=== PATIENT | female | born 1935 | race Caucasian/White ===

== ENCOUNTER 2018-07-31 17:01 | Inpatient (IN) ==
--- NOTE | 2018-07-31 17:33 | Emergency Department Note ---
Disposition Clinical Impression: Abdominal pain, UTI (urinary tract infection), Pyelonephritis Disposition: Admitted As Inpatient Condition: Fair Abdominal Pain HPI - General Chief Complaint: ED Abdominal Pain Stated Complaint: shortness of breath, weakness Time Seen by Provider: 07/31/18 17:15 Source: patient, EMS Mode of arrival: ambulatory Limitations: no limitations Nursing Notes Reviewed: Yes Vital Signs Reviewed: Yes - History of Present Illness HPI Narrative: 82 female who presents when she had nausea vomiting diarrhea since she had endoscopy performed with a did a biopsy she has had no blood in the vomit or any blood in the stool in addition the due to this patient states that she just does not feel she is making that peaked to get better patient then stated that she quit taking her Cardizem just before the procedure because she said she thought was causing her burning and stinging when she urinates she then had the procedure for foreign now she is just progressively had a decline since that she denies though cough congestion runny nose states this has no sore throat daughter advises that they found Loera's esophagus/esophagitis and gastritis and a polyp but she denies that hearing then used the term ulcer disease all systems otherwise have been reviewed and are otherwise negative Pt Subjective Complaint: abdominal pain, other (N/V/D) Consistency: constant Location: suprapubic Pain Scale: 4 Quality: cramping Improves with: nothing Worsens with: nothing Context: recent antibiotic use, recent surgery/procedure Associated symptoms: Reports: nausea, vomiting. Denies: diarrhea, fever, chills, dysuria, hematochezia, melena Treatments prior to arrival: prescription analgesics - Related Data Home Medications Medication Instructions Recorded Confirmed RX: Albuterol Sulfate [Albuterol 2 puff IH Q6HR 10/31/15 07/31/18 Inhaler] RX: Budesonide/Formoterol 160/4.5 2 puff IH BIDR 10/31/15 07/31/18 [Symbicort 160/4.5] RX: Cholecalciferol (Vitamin D3) 1,000 unit PO DAILY 10/31/15 07/31/18 [Vitamin D3] RX: Furosemide [Lasix] 20 mg PO BID 10/31/15 07/31/18 RX: Isosorbide MONOnitrate (24 HR) 60 mg PO DAILY 10/31/15 07/31/18 [Imdur] RX: Levothyroxine [Synthroid] 137 mcg PO 0630 10/31/15 07/31/18 RX: Omeprazole [PriLOSEC] 40 mg PO DAILY 10/31/15 07/31/18 RX: Simvastatin [Zocor] 10 mg PO DAILY 10/31/15 07/31/18 RX: Warfarin [Coumadin] 5 mg PO 6XW 10/31/15 07/31/18 RX: Albuterol Neb [Proventil Neb] 2.5 mg IH BID 02/17/16 07/31/18 RX: Gabapentin [Neurontin] 300 mg PO TID 02/17/16 07/31/18 RX: Mometasone Furoate [Elocon] 1 appl TP BID 02/17/16 07/31/18 RX: Nitroglycerin [Nitrostat] 0.4 mg SL AD PRN 02/17/16 07/31/18 RX: Losartan/HCTZ [Hyzaar 50-12.5 1 each PO DAILY 10/20/16 07/31/18 Tablet] RX: Warfarin [Coumadin] 2.5 mg PO ANDERSEN 10/23/16 07/31/18 Calcium Carbonate [Calcium] 600 mg PO DAILY 07/31/18 07/31/18 Diltiazem [Cardizem] 60 mg PO Q8HR 07/31/18 07/31/18 Multivit-Min/FA/Lycopen/Lutein 1 each PO DAILY 07/31/18 07/31/18 [Adults 50+ Multivitamin Tablet] [place]itt-3/Dha/Epa/Fish Oil [Fish Oil 1 each PO DAILY 07/31/18 07/31/18 1,000 mg Softgel] Promethazine [Phenergan] 25 mg PO Q6HR 07/31/18 07/31/18 Allergies Allergy/AdvReac Type Severity Reaction Status Date / Time Milk Containing Products AdvReac Cough Verified 07/31/18 17:20 All systems ED: reviewed and negative except as stated. Review of Systems: As Per HPI Constitutional: Reports: weakness. Denies: fever, chills Eyes: Denies: eye pain, eye discharge ENT ED: Denies: ear pain, throat pain Cardiovascular: Denies: chest pain, palpitations Respiratory: Denies: cough, dyspnea Gastrointestinal: Reports: abdominal pain, nausea, vomiting Genitourinary: Reports: frequency. Denies: urgency, dysuria Musculoskeletal: Denies: back pain, neck pain Integumentary: Denies: rash, abrasion, lesions, change in hair/nails Neurological: Denies: headache, weakness, numbness Psychiatric: Denies: anxiety Endocrine: Denies: fatigue Hematological/Lymphatic: Denies: easy bleeding Allergic/Immunologic: Denies: facial swelling Abdominal Pain PMH - Past Medical History Medical history: Reports: atrial fibrillation, CHF, coronary artery disease, GERD, hyperlipidemia, hypertension, other Female Surgical History: Reports: angioplasty/stent, other BIOLOGICAL SCIENTIST history: Reports: no BIOLOGICAL SCIENTIST history Psychiatric history: Reports: depression - Social History Smoking status: 2nd Hand Smoke Exposure Alcohol use: Reports: none Drug use: Reports: none Physical Exam - General Limitations: no limitations General appearance: alert, in no apparent distress, anxious - Head Head exam: atraumatic, normocephalic, normal inspection - Eye Eye exam: Present: normal appearance, PERRL, EOMI - ENT ENT exam: normal exam, normal oropharynx, mucous membranes moist - Neck Neck exam: Present: normal inspection, full ROM, trachea midline - Chest Chest inspection: Present: normal inspection, symmetric chest wall rise - Respiratory Respiratory exam: Present: normal lung sounds bilaterally - Cardiovascular Cardiovascular exam: Present: regular rate, normal rhythm, normal heart sounds - Abdominal Exam Abdominal exam: Present: soft, tenderness, normal bowel sounds. Absent: distention, guarding, rebound, rigidity Abdominal tenderness: Present: suprapubic, mild - Expanded Upper Extremity Exam Shoulder exam: Present: normal inspection, full ROM Arm exam: Present: normal inspection, full ROM Elbow exam: Present: normal inspection, full ROM Forearm/Wrist exam: Present: normal inspection, full ROM Hand exam: Present: normal inspection, full ROM Vascular exam: Normal: capillary refill, radial pulse - Expanded Lower Extremity Exam Hip/Pelvis exam: Present: normal inspection, full ROM Upper leg exam: Present: normal inspection, full ROM Knee exam: Present: normal inspection, full ROM Lower leg exam: Present: normal inspection, full ROM Ankle exam: Present: normal inspection, full ROM Foot/toe exam: Present: normal inspection, full ROM Neurovascular/Tendon exam: Present: normal capillary refill, normal fine/light touch. Absent: motor deficit, sensory deficit, tendon deficit Gait: observed and normal - Back Exam Back exam: Present: normal inspection, full ROM. Absent: muscle spasm - Neurological Exam Neurological exam: Present: alert, oriented X3, CN II-XII intact, normal gait - Psychiatric Psychiatric exam: Present: normal affect, normal mood - Skin Skin exam: Present: warm, dry, intact, normal color Course Course Narrative: Patient seen and evaluated patient has been monitored here in the emergency she is having no further pain or discomfort patient recommendations are for admission because of the pyelonephritis on the CAT scan with evidence of pyelonephritis and her urine the affected patient is agreeable [facility] Robler[facility] Vital Signs Temperature 99.1 F 07/31/18 17:11 Pulse Rate 100 07/31/18 17:11 Respiratory Rate 16 07/31/18 17:11 Blood Pressure 128/68 07/31/18 17:11 O2 Sat by Pulse Oximetry 94 07/31/18 17:11 Temperature 97.9 F 07/31/18 20:29 Pulse Rate 94 07/31/18 20:29 Respiratory Rate 18 07/31/18 20:29 Blood Pressure 110/59 07/31/18 20:29 O2 Sat by Pulse Oximetry 93 07/31/18 20:29 Oxygen Delivery Oxygen Delivery Room Air Abdominal Pain - Differential Diagnosis Differential Diagnosis: Likely: abdominal pain non-specific, constipation, colonic obstruction, gastroenteritis, small bowel obstruction, other (UTI pyelonephritis) - Medical Records Medical records reviewed: Yes I reviewed the patient's medical records. - Lab Data Lab results reviewed: Yes I reviewed the patient's lab results. Result diagrams: 07/31/18 17:41 07/31/18 17:41 Lab Results 07/31/18 07/31/18 07/31/18 Range/Units 17:41 17:41 17:41 WBC 9.6 (4.3-11.1) K/mcL RBC 4.17 (3.82-4.97) M/mcL Hgb 12.8 (11.5-15.4) g/dL Hct 37.5 (35.3-44.9) % MCV 89.9 (83.0-100.0) fL MCH 30.7 (28.0-33.3) pg MCHC 34.1 (31.6-35.5) g/dL RDW 13.2 (11.5-14.5) % Plt Count 246 (140-400) K/mcL MPV 9.3 L (9.4-12.4) fL Immature Gran % 0.3 (0-4) % Seg Neutrophils % 77.3 % Lymphocytes % 12.1 % Monocytes % 9.8 % Eosinophils % 0.1 % Basophils % 0.4 % Neutrophils # 7.4 (1.6-8.9) K/mcL Lymphocytes # 1.2 (0.6-4.6) K/mcL Monocytes # 0.9 (0.0-1.3) K/mcL Eosinophils # 0.0 (0.0-0.6) K/mcL Basophils # 0.0 (0.0-0.2) K/mcL PT 41.3 H (9.4-12.1) Seconds INR 3.7 APTT 44.6 H (26.0-36.0) Seconds Sodium 132 L (136-145) mEq/L Potassium 3.0 L (3.5-5.1) mEq/L Chloride 92 L (98-107) mEq/L Carbon Dioxide 28 (23-29) mEq/L BUN 16 (8-23) mg/dL Creatinine 0.79 (0.60-1.20) mg/dL Est GFR ( Amer) > 60 (> 60) Est GFR (Non-Af Amer) > 60 (> 60) BUN/Creatinine Ratio 20 (6-26) Glucose 105 (70-105) mg/dL Calculated Osmolality 276 L (280-300) Calcium 8.4 L (8.6-10.3) mg/dL Total Bilirubin 0.6 (0.3-1.0) mg/dL AST 24 (13-39) Units/L ALT 14 (7-52) Units/L Alkaline Phosphatase 49 (34-104) Units/L Serum Total Protein 6.6 (6.4-8.9) g/dL Albumin 3.2 L (3.5-5.7) g/dL Globulin 3.4 (2.4-3.5) g/dL Albumin/Globulin Ratio 0.9 L (1.1-2.2) Urine Color (Yellow) Urine Clarity (Clear) Urine pH (5.0-8.0) pH Units Ur Specific [place] (1.010-1.025) Urine Protein (Neg-Trace) mg/dL Urine Glucose (UA) (Normal) mg/dL Urine Ketones (Negative) mg/dL Urine Blood (Negative) Urine Nitrite (Negative) Urine Bilirubin (Negative) Urine Urobilinogen (Normal) mg/dL Ur Leukocyte Esterase (Negative) Urine Microscopic RBC (0-3) per hpf Urine Microscopic WBC (0-3) per hpf Ur Squamous Epith Cells (None-Few) per lpf Urine Bacteria (None-Few) per hpf Ur Culture Indicated? (NO) 07/31/18 Range/Units 17:50 WBC (4.3-11.1) K/mcL RBC (3.82-4.97) M/mcL Hgb (11.5-15.4) g/dL Hct (35.3-44.9) % MCV (83.0-100.0) fL MCH (28.0-33.3) pg MCHC (31.6-35.5) g/dL RDW (11.5-14.5) % Plt Count (140-400) K/mcL MPV (9.4-12.4) fL Immature Gran % (0-4) % Seg Neutrophils % % Lymphocytes % % Monocytes % % Eosinophils % % Basophils % % Neutrophils # (1.6-8.9) K/mcL Lymphocytes # (0.6-4.6) K/mcL Monocytes # (0.0-1.3) K/mcL Eosinophils # (0.0-0.6) K/mcL Basophils # (0.0-0.2) K/mcL PT (9.4-12.1) Seconds INR APTT (26.0-36.0) Seconds Sodium (136-145) mEq/L Potassium (3.5-5.1) mEq/L Chloride (98-107) mEq/L Carbon Dioxide (23-29) mEq/L BUN (8-23) mg/dL Creatinine (0.60-1.20) mg/dL Est GFR ( Amer) (> 60) Est GFR (Non-Af Amer) (> 60) BUN/Creatinine Ratio (6-26) Glucose (70-105) mg/dL Calculated Osmolality (280-300) Calcium (8.6-10.3) mg/dL Total Bilirubin (0.3-1.0) mg/dL AST (13-39) Units/L ALT (7-52) Units/L Alkaline Phosphatase (34-104) Units/L Serum Total Protein (6.4-8.9) g/dL Albumin (3.5-5.7) g/dL Globulin (2.4-3.5) g/dL Albumin/Globulin Ratio (1.1-2.2) Urine Color Yellow (Yellow) Urine Clarity Cloudy A (Clear) Urine pH 6.0 (5.0-8.0) pH Units Ur Specific [place] 1.015 (1.010-1.025) Urine Protein 30 H (Neg-Trace) mg/dL Urine Glucose (UA) Normal (Normal) mg/dL Urine Ketones Trace H (Negative) mg/dL Urine Blood Moderate H (Negative) Urine Nitrite Positive A (Negative) Urine Bilirubin Negative (Negative) Urine Urobilinogen Normal (Normal) mg/dL Ur Leukocyte Esterase Large H (Negative) Urine Microscopic RBC 5-15 H (0-3) per hpf Urine Microscopic WBC 15-30 H (0-3) per hpf Ur Squamous Epith Cells Few (None-Few) per lpf Urine Bacteria Moderate H (None-Few) per hpf Ur Culture Indicated? YES A (NO) - Radiology Data Radiology results reviewed: Yes I reviewed the patient's radiology results. ITS Impressions Abdomen/Pelvis CT 07/31/18 17:31 IMPRESSION: Mild degree of right-sided perinephric and periureteral fat stranding without hydroureteronephrosis or urinary tract stone identified. Findings could relate to a recently passed stone or could reflect nonspecific infectious/inflammatory process. Colonic diverticulosis without evidence for diverticulitis. D/ / 07/31/2018 18:25:32 Genaro Flower MD / rosalinda Interpreting Provider: Genaro Flower MD - EKG Data EKG attestation: Yes I reviewed and interpreted this EKG. EKG results narrative: EKG appears to be a sinus tach rate 104 HI 139 QRS 97 QT 346 axis -31 Critical Care Time Critical Care Time: No
[2018-07-31 17:51] LABS: Basophils % 0.4 %; Eosinophils % 0.1 %; Hematocrit 37.5 % (35.3-44.9); Hemoglobin 12.8 g/dL (11.5-15.4); Immature Granulocytes % 0.3 % (0-4); Lymphocytes # 1.2 K/mcL (0.6-4.6); Lymphocytes % 12.1 %; Mean Corpuscular HGB Conc 34.1 g/dL (31.6-35.5); Mean Corpuscular Hemoglobin 30.7 pg (28.0-33.3); Mean Corpuscular Volume 89.9 fL (83.0-100.0); Mean Platelet Volume 9.3 fL (9.4-12.4); Monocytes # 0.9 K/mcL (0.0-1.3); Monocytes % 9.8 %; Neutrophils # 7.4 K/mcL (1.6-8.9); Platelet Count 246 K/mcL (140-400); Red Blood Count 4.17 M/mcL (3.82-4.97); Red Cell Distribution Width 13.2 % (11.5-14.5); Segmented Neutrophils % 77.3 %
[2018-07-31 17:57] LABS: Bilirubin,Urine Negative (Negative); Blood,Urine Moderate (Negative); Clarity,Urine Cloudy (Clear); Color,Urine Yellow (Yellow); Glucose,Urine (UA) Normal (Normal); Ketones,Urine Trace mg/dL (Negative); Leukocyte Esterase,Urine Large (Negative); Nitrite,Urine Positive (Negative); Protein,Urine 30 mg/dL (Neg-Trace); Specific Gravity,Urine 1.015 (1.010-1.025); Urobilinogen,Urine Normal (Normal)
[2018-07-31 17:58] LABS: INR 3.7; Prothrombin Time 41.3 Seconds (9.4-12.1)
[2018-07-31 18:00] LABS: Activated Partial Thrombo Time 44.6 Seconds (26.0-36.0)
[2018-07-31 18:09] LABS: Alanine Aminotransferase 14 Units/L (7-52); Albumin 3.2 g/dL (3.5-5.7); Albumin/Globulin Ratio 0.9 (1.1-2.2); Alkaline Phosphatase 49 Units/L (34-104); Aspartate Amino Transferase 24 Units/L (13-39); BUN/Creatinine Ratio 20 (6-26); Bilirubin,Total 0.6 mg/dL (0.3-1.0); Blood Urea Nitrogen 16 mg/dL (8-23); Calcium 8.4 mg/dL (8.6-10.3); Carbon Dioxide 28 mEq/L (23-29); Chloride 92 mEq/L (98-107); Globulin 3.4 g/dL (2.4-3.5); Glucose 105 mg/dL (70-105); Osmolality,Calculated 276 (280-300); Sodium 132 mEq/L (136-145); Total Protein 6.6 g/dL (6.4-8.9); eGFR For Non-African Americans > 60 (> 60)
[2018-07-31 18:15] LABS: WBC,Urine 15-30 per hpf (0-3)
[2018-07-31 18:16] LABS: Bacteria,Urine Moderate per hpf (None-Few); Squamous Epithelial Cell,Urine Few per lpf (None-Few)
[2018-07-31] MEDS ORDERED: Naloxone 0.4 MG/ML INJ IVP PRN (20:46)
[2018-07-31] MEDS ORDERED: Benzonatate 100 MG CAPSULE PO PRN (20:46)
[2018-07-31] MEDS ORDERED: 0.9 % Sodium Chloride 1,000 ML IVC SCH (20:46)
[2018-07-31] MEDS: Gabapentin 300 MG CAPSULE PO SCH (21:46)
[2018-07-31] MEDS: dilTIAZem HCl 60 MG TABLET PO SCH (21:47)
[2018-07-31] MEDS: predniSONE 20 MG TABLET PO SCH (21:47)
[2018-07-31] MEDS: Budesonide/Formoterol 160/4.5 1 PUFF INH IH SCH (21:47)
[2018-07-31] MEDS: *HR* HYDROcodone/Acet 5/325 mg TABLET PO PRN (22:00)
[2018-07-31] MEDS: Furosemide 40 MG TABLET PO SCH (22:02)
[2018-08-01] MEDS: 0.9 % Sodium Chloride 1,000 ML IVC SCH ×2 (03:18→06:04)
[2018-08-01] MEDS: *HR* HYDROcodone/Acet 5/325 mg TABLET PO PRN ×2 (06:04→18:58)
[2018-08-01 06:09] LABS: Basophils % 0.1 %; Hematocrit 33.5 % (35.3-44.9); Hemoglobin 11.3 g/dL (11.5-15.4); INR 3.5; Immature Granulocytes % 0.4 % (0-4); Lymphocytes % 12.6 %; Mean Corpuscular HGB Conc 33.7 g/dL (31.6-35.5); Mean Corpuscular Hemoglobin 30.9 pg (28.0-33.3); Mean Corpuscular Volume 91.5 fL (83.0-100.0); Mean Platelet Volume 9.5 fL (9.4-12.4); Monocytes # 0.4 K/mcL (0.0-1.3); Monocytes % 5.2 %; Neutrophils # 6.3 K/mcL (1.6-8.9); Platelet Count 238 K/mcL (140-400); Prothrombin Time 39.5 Seconds (9.4-12.1); Red Blood Count 3.66 M/mcL (3.82-4.97); Red Cell Distribution Width 13.3 % (11.5-14.5); Segmented Neutrophils % 81.7 %
[2018-08-01 06:12] LABS: Activated Partial Thrombo Time 43.4 Seconds (26.0-36.0)
[2018-08-01 06:28] LABS: Potassium 3.5 mEq/L (3.5-5.1)
[2018-08-01] MEDS ORDERED: cefTRIAXone 1,000 MG in 0.9 % Sodium Chloride Mini Bag 100 ML IVPB ONE (09:00)
[2018-08-01] MEDS: Furosemide 40 MG TABLET PO SCH ×2 (09:25→18:58)
[2018-08-01] MEDS: dilTIAZem HCl 60 MG TABLET PO SCH ×3 (09:25→19:21)
--- NOTE | 2018-08-01 10:40 | Internal Med History&Physical ---
Date of Encounter: 08/01/18 Time of Encounter: 10:30 Assessment and Plan (1) UTI (urinary tract infection) Current visit: Yes Status: Acute Based on CT scan, she has a presumed pyelonephritis. We will treat her for at least 3 days IV and follow her clinically for other problems. Then, if stable, will change to oral medications.. We will try to replace her fluids but need to watch out for congestive heart failure, based on her medication list and hi story. Qualifiers: Urinary tract infection type: acute pyelonephritis Qualified Code(s): N10 - Acute pyelonephritis (2) Atrial fibrillation Current visit: No Status: Chronic This is apparently chronic and she is on chronic anticoagulation for same. Will need to resume her Cardizem, as soon as possible. Qualifiers: Atrial fibrillation type: paroxysmal Qualified Code(s): I48.0 - Paroxysmal atrial fibrillation (3) CAD (coronary artery disease) Current visit: No Status: Acute Per previous history and clinical status based on medications. Patient denies. Qualifiers: Coronary Disease-Associated Artery/Lesion type: [place] artery [place] vs. transplanted heart: transplanted heart Associated angina: without angina Qualified Code(s): I25.811 - Atherosclerosis of [place] coronary artery of transplanted heart without angina pectoris (4) DVT prophylaxis Current visit: No Status: Acute Chronically anticoagulated. (5) Abdominal pain Current visit: Yes Status: Acute This could be related to antibiotics or otherwise is viral until proven otherwise. Will await C. difficile testing and proceed accordingly. Seems to be improved as we are treating her pyelonephritis. Qualifiers: Abdominal location: lower abdomen, unspecified Qualified Code(s): R10.30 - Lower abdominal pain, unspecified (6) Hypokalemia Current visit: Yes Status: Acute Will supplement and follow. Will also check magnesium. (7) COPD (chronic obstructive pulmonary disease) Current visit: Yes Status: Acute Not currently an issue but a recent bronchitis and exacerbation. Will continue with oxygen, especially at night as at home. Qualifiers: COPD type: unspecified COPD Qualified Code(s): J44.9 - Chronic obstructive pulmonary disease, unspecified (8) Congestive heart failure Current visit: Yes Status: Acute As above, per medication list. Will need to watch, given her holding of her medicines, hypotension, IV fluids, etc. Qualifiers: Heart failure type: unspecified Heart failure chronicity: chronic Qualified Code(s): I50.9 - Heart failure, unspecified (9) Hypothyroidism Current visit: Yes Status: Acute Clinically stable on supplementation. Qualifiers: Hypothyroidism type: unspecified Qualified Code(s): E03.9 - Hypothyroidism, unspecified (10) Pyelonephritis Current visit: Yes Status: Acute C urinary tract infection, as above. Internal Medicine - H&P: HPI Chief complaint: Abdominal pain and diarrhea Admitted From: Home History of present illness: Ms. Blood is a 82 year old female who was in her usual state of health until the end of June. At that time she was treated for bronchitis and when it did not resolve her primary care physician gave her another round of antibiotics. She is unsure what kind of antibiotics but stated that she took it twice a day. The bronchitis seemed to improve and she was feeling reasonably well but in the early part of July underwent esophagoscopy for dilatation of her esophagus, had 2 biopsies, and "something else during the procedure." She developed epigastric pain thereafter and the pain spread into the rest of her abdomen, sometimes being severe. This stopped her from eating on occasion. She notes that about 3 weeks ago she developed dysuria which was at times severe, not associated with hematuria or foul-smelling or dark urine. She did not seek medical attention for same. This is not like the episode of pyelonephritis she had years ago which caused her to have back pain. 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 She has had injection of cement into one vertebrae but the other 2 were unsuccessful and she is simply treated with gabapentin for same. She attributed any back pain to this chronic problem. Over the last 5 days, she had nausea vomiting and diarrhea. She quit taking her blood pressure medicine (Cardizem) and was not able to eat or drink much at all. She had no fever but had chills and severe sweats. She felt weaker as the days went on and asked that her family bring her to the emergency room. She denies melena or hematochezia. Stool has been very loose but not always muna diarrhea. Her breathing has been adequate and not like when she had cough and other problems with bronchitis. Overnight she has had no nausea, vomiting, or diarrhea. She has been placed on IV fluids and even with this her systolic blood pressure has been low. She had only one episode of loose stool, this morning. It was not bloody or black. She continues to have low abdominal pain but it is better than it was over the last few days. She denies drug allergies. She has difficulty recalling her medications and prefers me to her "list." Past surgeries have included cataracts. Another eye surgery which was not successful and she has to have it redone in [place]. She states this involves her left eye. She has had laparoscopic cholecystectomy which was unsuccessful because of scar tissue and required open cholecystectomy. She has remote appendectomy, hysterectomy at age 27 followed by bilateral salpingectomy oophorectomy at age 28. She also has a problem with bowel that was at the time of her child delivery and has no complications, thereafter. Repeated weekly, she is had rotator cuff repair of both shoulders, both total knee replacements, 2 fingers into toes operated upon. Past medical history is significant for COPD with oxygen at 2 L every night. She also has a history of hyperthyroidism treated with "the nuclear pill," and subsequent hypothyroidism on supplementation. She has chronic atrial fibrill ation and has a mild heart murmur associated but no coronary disease or heart failure (however she is on isosorbide and Lasix per her med list). Pyelonephritis 1, several years ago, as above. Esophageal stenosis which was recently treated with dilatation, as above. I presume she has GERD related to this. Osteoporosis treated with gabapentin, after unsuccessful treatment of compression fractures. She has rather severe osteoarthritis, diffusely. She denies rheumatoid arthritis. Past Med Surg Social Fam HX - Past Medical History Medical history: atrial fibrillation, CHF, coronary artery disease, GERD, hyperlipidemia, hypertension, other Additional medical history: PVC's, respritory failure Psychiatric history: depression, other (See history of present illness, above.) - Past Surgical History Surgical History: appendectomy, cholecystectomy, hysterectomy, knee replacement, orthopedic, other, other Additional surgical history: corrective bowel surgery, ESOPHAGUS PROCEDURE - Social History Smoking Status: 2nd Hand Smoke Exposure Smokeless Tobacco Status: No Alcohol use: none Drug use: none - Family History Mother Hx Family Cancer: Yes (Colon [place]) Father Adopted: [place]: Raymundo Cabrera Age at : 85 Cause of : copd Hx Family Cardiac Disorders: Yes Hx Family Respiratory Disorders: Yes Hx Family Cancer: Yes Hx Family GI Disorders: Yes Hx Family Genitourinary Disorders: Yes Hx Family Endocrine Disorder: Yes Hx Family Musculoskeletal Disorders: No Hx Family Neuromuscular Disorders: No Hx Family Neurologic Disorders: No Hx Family HEENT Disorders: No Hx Family Autoimmune Disorders: No Hx Family Reproductive Disorders: No Hx Family Psychosocial Disorders: No Hx Family Medical Disorders: No Internal Medicine - H&P: Meds Albuterol Sulfate [Albuterol Inhaler] 2 puff IH Q6HR 10/31/15 [History] Budesonide/Formoterol 160/4.5 [Symbicort 160/4.5] 2 puff IH BIDR 10/31/15 [History] Cholecalciferol (Vitamin D3) [Vitamin D3] 1,000 unit PO DAILY 10/31/15 [History] Furosemide [Lasix] 20 mg PO BID 10/31/15 [History] Isosorbide MONOnitrate (24 HR) [Imdur] 60 mg PO DAILY 10/31/15 [History] Levothyroxine [Synthroid] 137 mcg PO 0630 10/31/15 [History] Omeprazole [PriLOSEC] 40 mg PO DAILY 10/31/15 [History] Simvastatin [Zocor] 10 mg PO DAILY 10/31/15 [History] Warfarin [Coumadin] 5 mg PO 6XW 10/31/15 [History] Albuterol Neb [Proventil Neb] 2.5 mg IH BID 02/17/16 [History] Gabapentin [Neurontin] 300 mg PO TID 02/17/16 [History] Mometasone Furoate [Elocon] 1 appl TP BID 02/17/16 [History] Nitroglycerin [Nitrostat] 0.4 mg SL AD PRN 02/17/16 [History] Losartan/HCTZ [Hyzaar 50-12.5 Tablet] 1 each PO DAILY 10/20/16 [History] Warfarin [Coumadin] 2.5 mg PO ANDERSEN 10/23/16 [History] Calcium Carbonate [Calcium] 600 mg PO DAILY 07/31/18 [History] Diltiazem [Cardizem] 60 mg PO Q8HR 07/31/18 [History] Multivit-Min/FA/Lycopen/Lutein [Adults 50+ Multivitamin Tablet] 1 each PO DAILY 07/31/18 [History] [place]-3/Dha/Epa/Fish Oil [Fish Oil 1,000 mg Softgel] 1 each PO DAILY 07/31/18 [History] Promethazine [Phenergan] 25 mg PO Q6HR 07/31/18 [History] Allergy/AdvReac Type Severity Reaction Status Date / Time Milk Containing Products AdvReac Cough Verified 07/31/18 17:20 All Systems PM: Patient has no complaint of chest discomfort, dyspnea, orthopnea, breathing pro blems, palpitations, nausea or vomiting, constipation or diarrhea, other changes in bowel habits, heartburn, difficulty with urination, kidney problems or kidney stones, fevers chills or sweats, rash or itching, seizures, headache or lightheadedness, heat or cold intolerance, blood problems or anemia, or other new complaints, except as mentioned above. Review of systems is otherwise negative. - Constitutional Vitals: Temp Pulse Resp BP Pulse Ox 96.8 F L 55 16 84/52 95 08/01/18 08:00 08/01/18 08:00 08/01/18 08:00 08/01/18 08:00 08/01/18 08:00 Exam: Examination: (Except as mentioned above): General: In no apparent distress, alert and oriented 3. She is on oxygen at 2 L per nasal cannula. Head: Atraumatic and normocephalic. Eyes: Extraocular muscles are intact, pupils equal round and reactive to light and accommodation. Sclerae anicteric. Ears: External ears are normal to inspection and hearing is grossly normal. Nose: Patent without lesion noted. Mouth: No intraoral lesions seen. She is edentulous with full dentures in place. Neck: Supple with trachea midline. There is no thyromegaly or adenopathy and carotids are 2+ without bruit heard. Respiratory: No use of accessory muscles. Lungs are clear throughout. Normal airflow. Cardiovascular: She is in irregularly irregular rhythm consistent with atrial fibrillation. Upon careful listening, I am totally unable to hear murmur. Abdomen: Bowel sounds are normal. No hepatosplenomegaly or mass with appropriate surgical scars. She has bilateral lower quadrant tenderness which is mild without guarding, mass, or rebound. Obese and therefore difficult to palpate deeply. Extremities: No cyanosis clubbing or edema. Neurological: A and O 3. Cranial nerves II through XII are intact. No focal deficits and no abnormal movements or postures. Skin: Warm and non-diaphoretic with no lesions noted. Breasts, pelvic and rectal: Not examined. Internal Med - H&P Results - Labs CBC & Chem 7: 08/01/18 05:55 08/01/18 05:55 Labs: Short CBC 07/31/18 08/01/18 Range/Units 17:41 05:55 WBC 9.6 7.7 (4.3-11.1) K/mcL Hgb 12.8 11.3 L D (11.5-15.4) g/dL Hct 37.5 33.5 L (35.3-44.9) % Plt Count 246 238 (140-400) K/mcL Neutrophils # 7.4 6.3 (1.6-8.9) K/mcL BMP 07/31/18 08/01/18 17:41 05:55 Sodium 132 L 135 L Potassium 3.0 L 3.5 Chloride 92 L 95 L Carbon Dioxide 28 29 BUN 16 25 H Creatinine 0.79 1.30 H Glucose 105 136 H Calcium 8.4 L 8.0 L Liver Function 07/31/18 Range/Units 17:41 Total Bilirubin 0.6 (0.3-1.0) mg/dL AST 24 (13-39) Units/L ALT 14 (7-52) Units/L Alkaline Phosphatase 49 (34-104) Units/L Albumin 3.2 L (3.5-5.7) g/dL Urine 07/31/18 Range/Units 17:50 Urine Color Yellow (Yellow) Urine Clarity Cloudy A (Clear) Urine pH 6.0 (5.0-8.0) pH Units Ur Specific [place] 1.015 (1.010-1.025) Urine Protein 30 H (Neg-Trace) mg/dL Urine Glucose (UA) Normal (Normal) mg/dL - Impressions ITS Impressions Abdomen/Pelvis CT 07/31/18 17:31 IMPRESSION: Mild degree of right-sided perinephric and periureteral fat stranding without hydroureteronephrosis or urinary tract stone identified. Findings could relate to a recently passed stone or could reflect nonspecific infectious/inflammatory process. Colonic diverticulosis without evidence for diverticulitis. D/ / 07/31/2018 18:25:32 Genaro Flower MD / rosalinda Interpreting Provider: Genaro Flower MD
[2018-08-01] MEDS ORDERED: Acetaminophen 325 MG TABLET PO PRN (11:04)
[2018-08-01] MEDS ORDERED: Mag Hydrox/Al Hydrox/Simeth 30 ML UDC PO PRN (11:04)
[2018-08-01] MEDS: Gabapentin 300 MG CAPSULE PO SCH ×3 (11:31→21:22)
[2018-08-01] MEDS: CITRACAL PO SCH (11:35)
[2018-08-01] MEDS: BONE DENSITY PO SCH (11:35)
[2018-08-01] MEDS: *HR* Acetylcysteine 20% 600 MG/3 ML ORAL SYRINGE PO SCH (11:36)
[2018-08-01] MEDS: predniSONE 20 MG TABLET PO SCH ×2 (11:36→21:22)
[2018-08-01] MEDS: Fluticasone Propionate Nasal 50 MCG/SPRAY BOTTLE NS SCH (11:36)
[2018-08-01] MEDS: Prenatal Vit/FA 1 EACH TABLET PO SCH (11:36)
[2018-08-01] MEDS: Losartan/HCTZ 50-12.5 TABLET PO SCH (11:41)
[2018-08-01] MEDS: Isosorbide MONOnitrate (24 HR) 60 MG TAB.ER.24H PO SCH (11:41)
[2018-08-01] MEDS: Triamcinolone Acet 0.1% CRM 15 GM TUBE TP SCH ×2 (11:41→21:21)
[2018-08-01] MEDS: amLODIPine 5 MG TABLET PO SCH (11:41)
[2018-08-01] MEDS: Albuterol 2.5 MG/3 ML NEBULIZER IH SCH ×2 (11:42→21:33)
[2018-08-01] MEDS: Budesonide/Formoterol 160/4.5 1 PUFF INH IH SCH ×2 (11:53→21:23)
[2018-08-01] MEDS: Cholecalciferol (D-3) 1,000 UNIT TABLET PO SCH (14:33)
[2018-08-01] MEDS: *HR* Warfarin 5 MG TABLET PO SCH (19:01)
[2018-08-02] MEDS: dilTIAZem HCl 60 MG TABLET PO SCH ×3 (03:14→18:59)
[2018-08-02] MEDS: *HR* HYDROcodone/Acet 5/325 mg TABLET PO PRN ×2 (05:55→22:50)
[2018-08-02 06:09] LABS: Basophils % 0.1 %; Hematocrit 35.7 % (35.3-44.9); Hemoglobin 11.8 g/dL (11.5-15.4); Immature Granulocytes % 0.4 % (0-4); Lymphocytes % 10.1 %; Mean Corpuscular HGB Conc 33.1 g/dL (31.6-35.5); Mean Corpuscular Hemoglobin 30.6 pg (28.0-33.3); Mean Corpuscular Volume 92.5 fL (83.0-100.0); Mean Platelet Volume 10.1 fL (9.4-12.4); Monocytes # 0.3 K/mcL (0.0-1.3); Monocytes % 3.1 %; Neutrophils # 8.6 K/mcL (1.6-8.9); Platelet Count 257 K/mcL (140-400); Red Blood Count 3.86 M/mcL (3.82-4.97); Red Cell Distribution Width 13.5 % (11.5-14.5); Segmented Neutrophils % 86.3 %
[2018-08-02 06:14] LABS: INR 3.8; Prothrombin Time 43.2 Seconds (9.4-12.1)
[2018-08-02 06:23] LABS: BUN/Creatinine Ratio 31 (6-26); Blood Urea Nitrogen 26 mg/dL (8-23); Calcium 7.9 mg/dL (8.6-10.3); Carbon Dioxide 28 mEq/L (23-29); Chloride 102 mEq/L (98-107); Glucose 153 mg/dL (70-105); Osmolality,Calculated 288 (280-300); Potassium 3.9 mEq/L (3.5-5.1); Sodium 135 mEq/L (136-145); eGFR For Non-African Americans > 60 (> 60)
[2018-08-02] MEDS: Furosemide 40 MG TABLET PO SCH ×2 (08:25→15:21)
[2018-08-02] MEDS: amLODIPine 5 MG TABLET PO SCH (08:25)
[2018-08-02] MEDS: Isosorbide MONOnitrate (24 HR) 60 MG TAB.ER.24H PO SCH (08:25)
[2018-08-02] MEDS: predniSONE 20 MG TABLET PO SCH ×2 (08:25→22:50)
[2018-08-02] MEDS: Cholecalciferol (D-3) 1,000 UNIT TABLET PO SCH (08:25)
[2018-08-02] MEDS: Losartan/HCTZ 50-12.5 TABLET PO SCH (08:25)
[2018-08-02] MEDS: Prenatal Vit/FA 1 EACH TABLET PO SCH (08:25)
[2018-08-02] MEDS: Gabapentin 300 MG CAPSULE PO SCH ×3 (08:25→22:50)
[2018-08-02] MEDS: CITRACAL PO SCH (08:26)
[2018-08-02] MEDS: BONE DENSITY PO SCH (08:26)
[2018-08-02] MEDS: Triamcinolone Acet 0.1% CRM 15 GM TUBE TP SCH ×2 (08:27→23:21)
[2018-08-02] MEDS: Budesonide/Formoterol 160/4.5 1 PUFF INH IH SCH ×2 (08:30→23:06)
[2018-08-02] MEDS: Albuterol 2.5 MG/3 ML NEBULIZER IH SCH ×2 (08:31→23:07)
[2018-08-02] MEDS: Fluticasone Propionate Nasal 50 MCG/SPRAY BOTTLE NS SCH (08:31)
--- NOTE | 2018-08-02 11:56 | Internal Med Progress Note ---
Date of Encounter: 08/02/18 Time of Encounter: 11:56 - Assessment and plan (1) UTI (urinary tract infection) Current Visit: Yes Status: Acute Assessment and plan: We will continue IV antibiotics at least 1 more day. Patient is improving and will await culture results. Qualifiers: Urinary tract infection type: acute pyelonephritis Qualified Code(s): N10 - Acute pyelonephritis (2) Atrial fibrillation Current Visit: No Status: Chronic Assessment and plan: She is clinically stable and rate is now controlled. Will continue Cardizem and metoprolol. Qualifiers: Atrial fibrillation type: paroxysmal Qualified Code(s): I48.0 - Paroxysmal atrial fibrillation (3) CAD (coronary artery disease) Current Visit: No Status: Acute Assessment and plan: Clinically stable. No signs or symptoms. Qualifiers: Coronary Disease-Associated Artery/Lesion type: [place] artery [place] vs. transplanted heart: transplanted heart Associated angina: without angina Qualified Code(s): I25.811 - Atherosclerosis of [place] coronary artery of transplanted heart without angina pectoris (4) DVT prophylaxis Current Visit: No Status: Acute (5) Abdominal pain Current Visit: Yes Status: Acute Assessment and plan: Related to UTI, presumptively. Qualifiers: Abdominal location: lower abdomen, unspecified Qualified Code(s): R10.30 - Lower abdominal pain, unspecified (6) Hypokalemia Current Visit: Yes Status: Acute Assessment and plan: We will follow. (7) COPD (chronic obstructive pulmonary disease) Current Visit: Yes Status: Acute Assessment and plan: No current signs or symptoms. Qualifiers: COPD type: unspecified COPD Qualified Code(s): J44.9 - Chronic obstructive pulmonary disease, unspecified (8) Congestive heart failure Current Visit: Yes Status: Acute Assessment and plan: No current signs or symptoms. Qualifiers: Heart failure type: unspecified Heart failure chronicity: chronic Qu alified Code(s): I50.9 - Heart failure, unspecified (9) Hypothyroidism Current Visit: Yes Status: Acute Qualifiers: Hypothyroidism type: unspecified Qualified Code(s): E03.9 - Hypothyroidism, unspecified (10) Pyelonephritis Current Visit: Yes Status: Acute Assessment and plan: Presumed, awaiting cultures, as above. - Subjective Interval history: Patient is feeling better. She is feeling slightly lightheaded but much better than yesterday. She has no dyspnea and her abdominal discomfort has not totally but nearly resolved. She has no other acute issues. We discussed her progress, at length. Patient has no complaint of chest discomfort, dyspnea, orthopnea, palpitations, nausea or vomiting, constipation or diarrhea, other changes in bowel habits, difficulty with urination, rash or itching, or other new complaints, except as mentioned above. Review of systems is otherwise negative. I discussed management of her care with nursing staff. - Constitutional Vitals: Temp Pulse Resp BP Pulse Ox 97.2 F L 68 15 112/63 95 08/02/18 08:51 08/02/18 08:51 08/02/18 08:51 08/02/18 08:51 08/02/18 08:51 Exam: Examination: (Except as mentioned above): General: In no apparent distress. Alert and oriented 3. Nondiaphoretic. Head: Atraumatic and normocephalic. Respiratory: No use of accessory muscles. Lungs are clear throughout. Normal airflow. Cardiovascular: Irregularly irregular without murmur heard, at this time. Abdomen: Bowel sounds are normal. No hepatosplenomegaly mass or tenderness appreciated. Obese and therefore difficult to palpate deeply. Patient is examined upright in chair and this also limits exam. Extremities: No cyanosis clubbing or edema. Skin: Warm and non-diaphoretic with no new lesions noted. Internal Medicine: Result - Labs CBC & Chem 7: 08/02/18 05:45 08/02/18 05:45 Labs: Short CBC 08/02/18 Range/Units 05:45 WBC 10.0 (4.3-11.1) K/mcL Hgb 11.8 (11.5-15.4) g/dL Hct 35.7 (35.3-44.9) % Plt Count 257 (140-400) K/mcL Neutrophils # 8.6 (1.6-8.9) K/mcL BMP 08/02/18 05:45 Sodium 135 L Potassium 3.9 Chloride 102 Carbon Dioxide 28 BUN 26 H Creatinine 0.84 Glucose 153 H Calcium 7.9 L - ABG Interpretation ABG results: PT/INR, D-dimer PT 43.2 Seconds (9.4-12.1) H 08/02/18 05:45 Consult Discharge Plan - Plan Referrals: Sylvia Evans, OVERNIGHT CAREGIVER [Primary Care Provider] -
[2018-08-02] MEDS: *HR* Acetylcysteine 20% 600 MG/3 ML ORAL SYRINGE PO SCH (13:35)
[2018-08-02] MEDS: *HR* Warfarin 5 MG TABLET PO SCH (15:16)
[2018-08-02] MEDS ORDERED: cefTRIAXone 1,000 MG in Water for inj. (sterile) 20 ML 10 ML IVP SCH (21:00)
[2018-08-03] MEDS: dilTIAZem HCl 60 MG TABLET PO SCH (02:23)
[2018-08-03] MEDS: *HR* HYDROcodone/Acet 5/325 mg TABLET PO PRN (06:55)
[2018-08-03 07:00] LABS: INR 3.7; Prothrombin Time 42.3 Seconds (9.4-12.1)
[2018-08-03] MEDS: Losartan/HCTZ 50-12.5 TABLET PO SCH (09:44)
[2018-08-03] MEDS: amLODIPine 5 MG TABLET PO SCH (09:44)
[2018-08-03] MEDS: predniSONE 20 MG TABLET PO SCH (09:44)
[2018-08-03] MEDS: Prenatal Vit/FA 1 EACH TABLET PO SCH (09:45)
[2018-08-03] MEDS: Furosemide 40 MG TABLET PO SCH (09:45)
[2018-08-03] MEDS: Gabapentin 300 MG CAPSULE PO SCH (09:45)
[2018-08-03] MEDS: Isosorbide MONOnitrate (24 HR) 60 MG TAB.ER.24H PO SCH (09:45)
[2018-08-03] MEDS: Cholecalciferol (D-3) 1,000 UNIT TABLET PO SCH (09:45)
[2018-08-03] MEDS: Fluticasone Propionate Nasal 50 MCG/SPRAY BOTTLE NS SCH (09:46)
[2018-08-03] MEDS: Triamcinolone Acet 0.1% CRM 15 GM TUBE TP SCH (09:46)
[2018-08-03] MEDS: BONE DENSITY PO SCH (09:52)
[2018-08-03] MEDS: CITRACAL PO SCH (09:52)
[2018-08-03] MEDS: Budesonide/Formoterol 160/4.5 1 PUFF INH IH SCH (10:03)
[2018-08-03] MEDS: Albuterol 2.5 MG/3 ML NEBULIZER IH SCH (10:04)
[2018-08-03 11:40] VITALS: BP 101/55
--- NOTE | 2018-08-03 11:40 | Electrocardiograph Report ---
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
--- NOTE | 2018-08-03 11:43 | Discharge Summary ---
Orders not resulted at time of discharge: Pending orders 08/04/18 04:00 PT/INR [Prothrombin Time INR] [COAG] AM 0400 08/05/18 04:00 PT/INR [Prothrombin Time INR] [COAG] AM 0400 08/06/18 04:00 PT/INR [Prothrombin Time INR] [COAG] AM 0400 08/07/18 04:00 PT/INR [Prothrombin Time INR] [COAG] AM 0400 08/08/18 04:00 PT/INR [Prothrombin Time INR] [[facility]AG] AM 0400 08/09/18 04:00 PT/INR [Prothrombin Time INR] [COAG] AM 0400 Date of Encounter: 08/03/18 Time of Encounter: 11:41 - Discharge Diagnosis (1) Pyelonephritis Priority: Primary Status: Acute Comments: Patient was admitted for a UTI/pyelonephritis. Patient had positive urine cultures and currently being treated with Rocephin. Patient has been afebrile. Denies any fever or chills. Patient is being discharged to home with a prescr iption for a 10 day supply of Keflex. Patient is to follow up with her PCP within the next 2 weeks. (2) CAD (coronary artery disease) Priority: Secondary Status: Acute Comments: No acute issues during her stay at this facility. Patient denies any chest palpitations or discomforts. Patient continues on Coumadin for atrial fibrillation with today's INR at 3.7. Patient's had a slight increase in INR since starting on antibiotics. Patient's Coumadin will be decreased to 2.5 mg daily while she is on antibiotics and patient is being instructed to follow-up with her PCP within one week for further evaluation and management of her Coumadin therapy Qualifiers: Coronary Disease-Associated Artery/Lesion type: [place] artery [place] vs. transplanted heart: transplanted heart Associated angina: without angina Qualified Code(s): I25.811 - Atherosclerosis of [place] coronary artery of transplanted heart without angina pectoris (3) COPD (chronic obstructive pulmonary disease) Priority: Secondary Status: Acute Comments: No acute issues during her stay at this facility. Patient denies any current dyspnea or productive cough. Respiratory effort appears relaxed. We will continue with home medications at time of discharge and follow-up with PCP for further management Qualifiers: COPD type: unspecified COPD Qualified Code(s): J44.9 - Chronic obstructive pulmonary disease, unspecified (4) Congestive heart failure Priority: Secondary Status: Acute Comments: No acute issues during her stay at this facility. Patient's continue with home medications after discharge and follow-up with PCP for further management. Patient remains on Coumadin, which is to be continued at 2.5 mg daily while on antibiotics and patient is to follow-up with PCP within one week for further management of Coumadin therapy Qualifiers: Heart failure type: unspecified Heart failure chronicity: chronic Qualified Code(s): I50.9 - Heart failure, unspecified Hospital course: Ms. Blood is a 82 year old female , who was admitted to this facility after presenting to emergency department with complaints of shortness of breath and increased weakness. Patient had complaints of dysuria over the past several days prior to admission. Patient has a long history of COPD and CHF. On admission patient was diagnosed with a UTI and later after a CT scan she was diagnosed with pyelonephritis. Patient was admitted to facility and started on Rocephin. Patient's symptoms had not improved over the past several days of antibiotics. Patient currently denies any dysuria. Patient denies any dyspnea or discomforts. Patient is being discharged to home with a prescription for 10 days of Keflex. While at this facility patient's Coumadin, which she takes for atrial fibrillation and CHF, was noted to have an increase in her INR after starting on antibiotics. Today's INR was 3.7 and patient's daily dose of Coumadin was reduced to 2.5 mg daily. Patient is given recommendations to follow up with her PCP within one week for further evaluation and management. Patient is recommended to have her INR checked at least twice a week or per her PCP. Discharge discussed with: patient Time spent discussing smoking cessation with patient: 3 to 10 minutes - Time Spent with Patient Total time spent providing and/or coordinating discharge services: Less than 30 minutes - Discharge Medications Home Medications: Albuterol Sulfate [Albuterol Inhaler] 2 puff IH Q6HR 10/31/15 [History] Budesonide/Formoterol 160/4.5 [Symbicort 160/4.5] 2 puff IH BIDR 10/31/15 [History] Cholecalciferol (Vitamin D3) [Vitamin D3] 1,000 unit PO DAILY 10/31/15 [History] Furosemide [Lasix] 20 mg PO BID 10/31/15 [History] Isosorbide MONOnitrate (24 HR) [Imdur] 60 mg PO DAILY 10/31/15 [History] Levothyroxine [Synthroid] 137 mcg PO 0630 10/31/15 [History] Omeprazole [PriLOSEC] 40 mg PO DAILY 10/31/15 [History] Simvastatin [Zocor] 10 mg PO DAILY 10/31/15 [History] Warfarin [Coumadin] 5 mg PO 6XW 10/31/15 [History] Albuterol Neb [Proventil Neb] 2.5 mg IH BID 02/17/16 [History] Gabapentin [Neurontin] 300 mg PO TID 02/17/16 [History] Mometasone Furoate [Elocon] 1 appl TP BID 02/17/16 [History] Nitroglycerin [Nitrostat] 0.4 mg SL AD PRN 02/17/16 [History] Losartan/HCTZ [Hyzaar 50-12.5 Tablet] 1 each PO DAILY 10/20/16 [History] Warfarin [Coumadin] 2.5 mg PO ANDERSEN 10/23/16 [History] Calcium Carbonate [Calcium] 600 mg PO DAILY 07/31/18 [History] Diltiazem [Cardizem] 60 mg PO Q8HR 07/31/18 [History] Multivit-Min/FA/Lycopen/Lutein [Adults 50+ Multivitamin Tablet] 1 each PO DAILY 07/31/18 [History] [place]-3/Dha/Epa/Fish Oil [Fish Oil 1,000 mg Softgel] 1 each PO DAILY 07/31/18 [History] Promethazine [Phenergan] 25 mg PO Q6HR 07/31/18 [History] Allergies/Adverse Reactions: Allergy/AdvReac Type Severity Reaction Status Date / Time Milk Containing Products AdvReac Cough Verified 07/31/18 17:20 Date of admission: 08/01/18 11:44 Primary care physician: Sylvia Evans CNP Consults: 07/31/18 20:59 Consult to [employer] [CONS] Routine Reason for SW Consult: POA Discharging clinician: Solomon Roblero - Constitutional Vitals: Temp Pulse Resp BP Pulse Ox 97.6 F 72 18 101/55 92 08/03/18 11:39 08/03/18 11:39 01/02/19 11:39 08/03/18 11:39 08/03/18 11:39 General appearance: Present: A&O X 3, pleasant - Head Head exam: Present: atraumatic, normocephalic - Eye Eye exam: Present: PERRL, conjuntiva pink, sclera anicteric Pupils: Present: PERRL - Neck Neck exam general surgery: Present: supple, trachea midline. Absent: lymphadenopathy - Respiratory Respiratory exam: Present: CTAB. Absent: accessory muscle use, rales, rhonchi, wheezes - Cardiovascular Cardiovascular exam: Present: RRR, +S1, +S2. Absent: diastolic murmur, gallop, rubs, systolic murmur - GI/Abdominal GI/Abdominal exam: Present: normal bowel sounds, soft, no peritoneal signs. Absent: distended, tenderness - Extremities Exam Extremities exam: Present: warm, radial pulses palpable and symmetrical. Absent: calf tenderness, cyanotic, pedal edema - Neurological Exam Neurological exam: Present: CN II-XII intact, oriented X3, no focal deficits. Absent: pronater drift, facial droop, speech deficit - Skin Skin exam: Present: dry, intact - Patient Status Disposition: Home, Self-Care Condition: Fair Functional capacity at discharge: uses cane/walker Overall status at discharge: patient is progressing back to baseline - Discharge Instructions Follow Up With: Sylvia Evans, [employer] [Primary Care Provider] - - Diet and Activity Activity: increase activity as tolerated Diet: low fat, low cholesterol, low salt diet
[2018-08-03] MEDS ORDERED: *HR* Warfarin 2.5 MG TABLET PO SCH (18:00)
[2018-08-07] MEDS ORDERED: *HR* Warfarin 2.5 MG TABLET PO SCH (18:00)
== END 2018-08-03 14:00 | disposition home or self-care (01) | DRG 690 ==
LOC: EMEROOGRE 17:01 → INPGRE 17:01